=== PATIENT | female | born 1945 | race Asian ===

== ENCOUNTER 2017-08-12 09:28 | Outpatient (CLI) | payer MEDICARE, BC ==
--- NOTE | 2017-08-13 13:13 | MMO ---
BILATERAL SCREENING MAMMOGRAM: Date: 08/12/17 HISTORY: Screening. COMPARISON: Mammograms from 2016 and 2014. TECHNIQUE: Bilateral screening CC and MLO mammograms. This patient's mammogram was interpreted with the assistance of computer-aided detection. FINDINGS: The breasts are heterogeneously dense, which may obscure small masses. Benign calcification left [address]. Benign calcifications right breast. No suspicious mass, architectural distortion, or microcalcifi cations. IMPRESSION: BIRADS 2: Benign Finding(s) Continued annual mammographic screening is recommended. POS: [facility]
== END 2017-08-12 09:29 | disposition home or self-care (01) ==
LOC: SCSMAMMO 09:28
PROVIDERS: ATTEND Family Medicine
DX: Z12.31 Encounter for screening mammogram for malignant neoplasm of breast (principal)
CPT/HCPCS: 77067

== ENCOUNTER 2017-10-11 08:42 | Outpatient (CLI) | payer MEDICARE, BC ==
--- NOTE | 2017-10-11 11:06 | RAD ---
PA AND LATERAL CHEST: Indication: Acute bronchiolitis and congestion. FINDINGS: There are patchy interstitial and airspace opacities within the retrocardiac left lower lobe. Heart s ize and pulmonary vasculature is within normal limits. There is mild chronic emphysematous change. Th is appears similar to a comparison dated 05-08-10. No acute osseous abnormality is evident. IMPRESSION: There is some interstitial and opacity opacities within the left lower lobe can be related to areas o f subsegmental atelectasis related to bronchiolitis; however, bronchopneumonia is not excluded. Recom mend radiographic follow up to resolution. POS: [facility]
== END 2017-10-11 08:43 | disposition home or self-care (01) ==
LOC: SCSRAD 08:42
PROVIDERS: ATTEND Family Medicine
DX: J21.8 Acute bronchiolitis due to other specified organisms (principal); R91.8 Other nonspecific abnormal finding of lung field
CPT/HCPCS: 71046

== ENCOUNTER 2018-05-10 20:08 | Emergency (ER) | payer MEDICARE, BC ==
[2018-05-10] MEDS ORDERED: Meclizine HCl 25 MG TAB ONE (21:27)
[2018-05-10 21:59] LABS: Anion Gap 15 mmol/L (10-20); BUN (Urea Nitrogen) 25 mg/dL (9.8-20.1); Calc. Creatinine Clearance 0 mL/min (70-130); Calcium 10.1 mg/dL (7.8-10.44); Carbon Dioxide 21 mmol/L (23-31); Chloride 105 mmol/L (98-107); Estimated GFR-MDRD 59; Glucose 124 mg/dL (83-110); Potassium 4.3 mmol/L (3.5-5.1); Sodium 137 mmol/L (136-145)
--- NOTE | 2018-05-10 23:00 | CT ---
CTA OF THE HEAD WITH AND WITHOUT CONTRAST UTILIZING 3D REFORMATTED IMAGING 05/10/18 INDICATION: Rotatory nystagmus and dizziness. COMPARISON: None. FINDINGS: No acute infarct, hemorrhage or hydrocephalus is present. Septum pellucidum and third ventricle are m idline. Skull and extracranial soft tissues appear within normal limits. The mastoid air cells are cl ear. The visualized paranasal sinuses are clear. No hemodynamically significant stenosis, occlusion or aneurysmal formation is evident. No area of abn ormal enhancement is demonstrated. IMPRESSION: 1. No acute intracranial abnormality. 2. No hemodynamically significant stenosis, occlusion or aneurysmal formation demonstrated. POS: [facility]
== END 2018-05-10 23:22 | disposition home or self-care (01) ==
LOC: SCSER 20:08
DX: H81.10 Benign paroxysmal vertigo, unspecified ear (principal); E03.9 Hypothyroidism, unspecified; Z79.899 Other long term (current) drug therapy
CPT/HCPCS: 70496; 80048

== ENCOUNTER 2018-09-17 13:34 | Outpatient (CLI) | payer MEDICARE, BC ==
--- NOTE | 2018-09-17 14:11 | MMO ---
Bilateral MAMMO Bilat Screen [facility]. CLINICAL HISTORY: Patient is 73 years old and is seen for screening. The patient has no family history of breast cancer. The patient has no personal history of cancer. VIEWS: The views performed were: bilateral craniocaudal with tomosynthesis and bilateral mediolateral oblique with tomosynthesis. FILMS COMPARED: The present examination has been compared to prior imaging studies performed at [facility] on 08/09/2016 and 08/12/2017, and at [facility] on 04/08/2014 and 05/31/2015. MAMMOGRAM FINDINGS: There are scattered fibroglandular densities. There are stable benign appearing calcifications seen in both breasts. There are no suspicious masses, suspicious calcifications, or new areas of architectural distortion. IMPRESSION: THERE IS NO MAMMOGRAPHIC EVIDENCE OF MALIGNANCY. A ROUTINE FOLLOW-UP MAMMOGRAM IN 1 YEAR IS RECOMMENDED. THE RESULTS OF THIS EXAM WERE SENT TO THE PATIENT. ACR BI-RADS Category 2 - Benign finding MAMMOGRAPHY NOTE: 1. A negative mammogram report should not delay a biopsy if a dominant of clinically suspicious mass is present. 2. Approximately 10% to 15% of breast cancers are not detected by mammography. 3. Adenosis and dense breasts may obscure an underlying neoplasm. Reported by: MAHENDRA OCONNELL MD Electonically Signed: [id number]
== END 2018-09-17 13:35 | disposition home or self-care (01) ==
LOC: BICMAMMO 13:34
PROVIDERS: ATTEND Family Medicine
DX: Z12.31 Encounter for screening mammogram for malignant neoplasm of breast (principal)
CPT/HCPCS: 77063; 77067

== ENCOUNTER 2019-04-02 12:21 | Outpatient (CLI) | payer MEDICARE, BC ==
--- NOTE | 2019-04-02 12:47 | RAD ---
EXAM: Chest Two Views 04/02/2019 12:42 PM HISTORY: History of walking pneumonia COMPARISON: Chest radiograph dated February 06, 2019, January 07, 2019 and October 11, 2017 FINDINGS: Heart: Normal in size and contour. Pulmonary vessels: Normal. Costophrenic angles: Clear. Lungs: The areas of peripheral interstitial and airspace opacity are stable to the most recent compar brandon dated February 06, 2019 but appears slightly more progressed than on the comparison in January 2019. No focal consolidation is evident. Pneumothorax: None. Osseous structures:Intact. Additional findings: None. IMPRESSION: Worsening peripheral interstitial and airspace opacity within both lungs. Certainly prolonged pneumon ia could induce these findings; however, chronic entities such as chronic eosinophilic pneumonia, hypersensitivity pneumonitis or cryptogenic organizing pneumonia cannot be entirely excluded. An unde rlying interstitial lung disease is not excluded. Dedicated CT the thorax with IV contrast is recommended for additional characterization.
== END 2019-04-02 12:22 | disposition home or self-care (01) ==
LOC: SCSRAD 12:21
PROVIDERS: ATTEND Family Medicine
DX: Z09 Encounter for follow-up examination after completed treatment for conditions other than malignant neoplasm (principal); Z87.01 Personal history of pneumonia (recurrent); R91.8 Other nonspecific abnormal finding of lung field
CPT/HCPCS: 71046

== ENCOUNTER 2019-05-12 09:28 | Outpatient (CLI) | payer MEDICARE, BC ==
--- NOTE | 2019-05-12 10:09 | RAD ---
XR Chest Pa Lat STANDARD History: Pneumonia lower lobe Comparison: Radiograph April 02, 2019 Findings: There is scarring throughout the lungs with the peripheral predominance. No pneumothorax. N o effusion. Cardiac silhouette and mediastinal contours are within normal limits. No acute osseous abnormality. Impression: Similar examination of the chest.
== END 2019-05-12 09:29 | disposition home or self-care (01) ==
LOC: SCSRAD 09:28
PROVIDERS: ATTEND Family Medicine
DX: J18.9 Pneumonia, unspecified organism (principal); E03.9 Hypothyroidism, unspecified
CPT/HCPCS: 36415; 71046; 84443

== ENCOUNTER 2019-09-30 08:03 | Outpatient (CLI) | payer MEDICARE, BC ==
--- NOTE | 2019-09-30 08:50 | MMO ---
Bilateral MAMMO Bilat Screen [facility]. CLINICAL HISTORY: Patient is 74 years old and is seen for screening. The patient has no family history of breast cancer. The patient has no personal history of cancer. VIEWS: The views performed were: bilateral craniocaudal with tomosynthesis and bilateral mediolateral oblique with tomosynthesis. FILMS COMPARED: The present examination has been compared to prior imaging studies performed at [facility] on 08/09/2016, 08/12/2017 and 09/17/2018, and at [facility] on 05/31/2015. This study has been interpreted with the assistance of computer-aided detection. MAMMOGRAM FINDINGS: There are scattered fibroglandular densities. Benign calcifications are noted bilaterally. There are no suspicious masses, suspicious calcifications, or new areas of architectural distortion. IMPRESSION: THERE IS NO MAMMOGRAPHIC EVIDENCE OF MALIGNANCY. A ROUTINE FOLLOW-UP MAMMOGRAM IN 1 YEAR IS RECOMMENDED. THE RESULTS OF THIS EXAM WERE SENT TO THE PATIENT. ACR BI-RADS Category 2 - Benign finding MAMMOGRAPHY NOTE: 1. A negative mammogram report should not delay a biopsy if a dominant of clinically suspicious mass is present. 2. Approximately 10% to 15% of breast cancers are not detected by mammography. 3. Adenosis and dense breasts may obscure an underlying neoplasm. Reported by: SOPHIE REYES MD Electonically Signed: [id number]
== END 2019-09-30 08:04 | disposition home or self-care (01) ==
LOC: BICMAMMO 08:03
PROVIDERS: ATTEND Family Medicine
DX: Z12.31 Encounter for screening mammogram for malignant neoplasm of breast (principal)
CPT/HCPCS: 77063; 77067

== ENCOUNTER 2021-04-24 08:48 | Outpatient (CLI) | payer MEDICARE, BC | END 2021-04-24 08:49 | disposition home or self-care (01) | LOC: CT 08:48 | PROVIDERS: ATTEND Internal Medicine Critical Care Medicine | DX: R91.1 Solitary pulmonary nodule (principal); J84.9 Interstitial pulmonary disease, unspecified | CPT/HCPCS: 71250 ==

== ENCOUNTER 2022-01-30 08:34 | Outpatient (CLI) | payer MEDICARE, BC | END 2022-01-30 08:35 | disposition home or self-care (01) | LOC: RAD 08:34 | PROVIDERS: ATTEND Internal Medicine Critical Care Medicine | DX: R06.00 Dyspnea, unspecified (principal); R91.8 Other nonspecific abnormal finding of lung field | CPT/HCPCS: 71046 ==

== ENCOUNTER 2022-02-15 11:19 | Outpatient (CLI) | payer MEDICARE, BC | END 2022-02-15 11:20 | disposition home or self-care (01) | LOC: RAD 11:19 | PROVIDERS: ATTEND Internal Medicine Critical Care Medicine | DX: R06.00 Dyspnea, unspecified (principal); R91.8 Other nonspecific abnormal finding of lung field | CPT/HCPCS: 71046 ==

== ENCOUNTER 2022-02-28 08:58 | Outpatient (CLI) | payer MEDICARE, BC | END 2022-02-28 08:59 | disposition home or self-care (01) | LOC: RAD 08:58 | PROVIDERS: ATTEND Internal Medicine Critical Care Medicine | DX: R06.00 Dyspnea, unspecified (principal) | CPT/HCPCS: 71046 ==

== ENCOUNTER 2022-04-03 09:10 | Outpatient (CLI) | payer MEDICARE, BC | END 2022-04-03 09:11 | disposition home or self-care (01) | LOC: RAD 09:10 | PROVIDERS: ATTEND Internal Medicine Critical Care Medicine | DX: R06.00 Dyspnea, unspecified (principal); R91.8 Other nonspecific abnormal finding of lung field | CPT/HCPCS: 71046 ==

== ENCOUNTER 2022-05-30 08:15 | Outpatient (CLI) | payer MEDICARE, BC | END 2022-05-30 08:16 | disposition home or self-care (01) | LOC: BICCT 08:15 | PROVIDERS: ATTEND Internal Medicine Critical Care Medicine | DX: J84.9 Interstitial pulmonary disease, unspecified (principal); J84.10 Pulmonary fibrosis, unspecified | CPT/HCPCS: 71250 ==

== ENCOUNTER 2022-12-11 07:51 | Outpatient (CLI) | payer MEDICARE, BC | END 2022-12-11 07:52 | disposition home or self-care (01) | LOC: BICCT 07:51 | PROVIDERS: ATTEND Internal Medicine Critical Care Medicine | DX: J84.9 Interstitial pulmonary disease, unspecified (principal) | CPT/HCPCS: 71250 ==

== ENCOUNTER 2022-12-28 08:39 | Day surgery (SDC) | payer MEDICARE, BC ==
[2022-12-27 12:03] VITALS: BMI 24.8
[2022-12-28] MEDS ORDERED: Lidocaine 1% PF 5 ML VIAL ONE (11:32)
[2022-12-28] MEDS ORDERED: PROPOFOL 200 MG/20 ML VIAL ONE (11:32)
== END 2022-12-28 13:04 | disposition home or self-care (01) ==
LOC: SDC 08:39
PROVIDERS: ATTEND Internal Medicine Gastroenterology
PROC: 0DB38ZX Excision of Lower Esophagus, Via Natural or Artificial Opening Endoscopic, Diagnostic (ICD-10-PCS; principal; 2022-12-28)
DX: K22.10 Ulcer of esophagus without bleeding (principal); K21.00 Gastro-esophageal reflux disease with esophagitis, without bleeding; K44.9 Diaphragmatic hernia without obstruction or gangrene; Z79.899 Other long term (current) drug therapy; Z88.0 Allergy status to penicillin
CPT/HCPCS: 88305; J2704

== ENCOUNTER 2023-09-13 12:26 | Outpatient (CLI) | payer MEDICARE, BC | END 2023-09-13 12:27 | disposition home or self-care (01) | LOC: CT 12:26 | PROVIDERS: ATTEND Internal Medicine Critical Care Medicine | DX: J84.9 Interstitial pulmonary disease, unspecified (principal); J84.10 Pulmonary fibrosis, unspecified | CPT/HCPCS: 71250 ==

== ENCOUNTER 2024-02-19 09:12 | Outpatient (CLI) | payer MEDICARE, BC | END 2024-02-19 09:13 | disposition home or self-care (01) | LOC: BICCT 09:12 | PROVIDERS: ATTEND Internal Medicine Critical Care Medicine | DX: J84.9 Interstitial pulmonary disease, unspecified (principal); J84.10 Pulmonary fibrosis, unspecified | CPT/HCPCS: 71250 ==

== ENCOUNTER 2024-04-27 10:36 | Outpatient (CLI) | payer MEDICARE, BC | END 2024-04-27 10:37 | disposition home or self-care (01) | LOC: RAD 10:36 | PROVIDERS: ATTEND Internal Medicine Critical Care Medicine | DX: R60.0 Localized edema (principal); J84.10 Pulmonary fibrosis, unspecified | CPT/HCPCS: 71046 ==

== ENCOUNTER 2024-04-28 09:58 | Outpatient (CLI) | payer MEDICARE, BC | END 2024-04-28 09:59 | disposition home or self-care (01) | LOC: RAD 09:58 | PROVIDERS: ATTEND Internal Medicine Critical Care Medicine | DX: K21.9 Gastro-esophageal reflux disease without esophagitis (principal); R13.19 Other dysphagia; R05.3 Chronic cough; Z91.89 Other specified personal risk factors, not elsewhere classified | CPT/HCPCS: 74230 ==